=== PATIENT | male | born 1945 | race Caucasian/White ===

== ENCOUNTER 2018-05-09 08:38 | Day surgery (SDC) | payer MEDICARE ==
[2018-05-07 10:35] LABS: BASOPHILS # (AUTO) 0.1 X10'3 (0-0.2); BASOPHILS % (AUTO) 1.2 % (0-1); EOSINOPHILS # (AUTO) 0.2 X10'3 (0-0.9); EOSINOPHILS % (AUTO) 3.7 % (0-6); HEMATOCRIT 40.5 % (42.0-52.0); HEMOGLOBIN 13.8 g/dl (14.0-17.9); LYMPHOCYTES # (AUTO) 1.8 X10'3 (1.1-4.8); LYMPHOCYTES % (AUTO) 31.1 % (21-51); MEAN CORPUSCULAR HEMOGLOBIN 31.1 PG (27.0-31.0); MEAN CORPUSCULAR HGB CONC 34.1 g/dL (33.0-36.5); MEAN CORPUSCULAR VOLUME 91.3 FL (78-98); MEAN PLATELET VOLUME 8.6 FL (7.4-10.4); MONOCYTES # (AUTO) 0.6 X10'3 (0-0.9); MONOCYTES % (AUTO) 10.4 % (2-12); NEUTROPHILS # (AUTO) 3.1 X10'3 (1.8-7.7); NEUTROPHILS % (AUTO) 53.6 % (42-75); PLATELET COUNT 216 X10'3 (140-440); RED BLOOD COUNT 4.44 X10'6 (4.70-6.10); RED CELL DISTRIBUTION WIDTH 13.7 % (11.5-14.5); WHITE BLOOD COUNT 5.9 X10'3 (4.5-11.0)
[2018-05-07 10:43] LABS: PARTIAL THROMBOPLASTIN TIME 25 SECONDS (22-32)
[2018-05-07 10:46] LABS: ALANINE AMINOTRANSFERASE 37 U/L (12-78); ALBUMIN/GLOBULIN RATIO 1.3 (1.1-1.5); ALKALINE PHOSPHATASE 83 IU/L (46-116); ANION GAP 12 (8-16); ASPARTATE AMINO TRANSFERASE 18 U/L (10-37); BILIRUBIN,TOTAL 0.7 MG/DL (0.1-1.0); BLOOD UREA NITROGEN 20 MG/DL (7-18); BUN/CREATININE RATIO 16.9 (5.4-32.0); CALCIUM 9.7 MG/DL (8.5-10.1); CHLORIDE 106 MMOL/L (99-107); CREATININE 1.18 MG/DL (0.60-1.10); GLUCOSE 156 MG/DL (70-104); POTASSIUM 4.3 MMOL/L (3.5-5.1); SODIUM 140 MMOL/L (135-145); TOTAL CARBON DIOXIDE 22.4 MMOL/L (24-32); TOTAL PROTEIN 7.1 G/DL (6.4-8.2); eGFR 61 ML/MIN
[2018-05-09] VITALS (13 sets, daily range): BP systolic 111–179; BP diastolic 54–82
[~2018-05-09] VITALS: Ht 175.3 cm; Wt 109.6 kg
[~2018-05-09 08:38] MED LIST: ASPI-1009 PO; FLO0.4C PO; GLIM1TAB46 PO; METF500T PO; METO100T7 PO; MULT-1074 PO; SIMV20TA5 PO; TAMSULOSIN
[2018-05-09] MEDS ORDERED: glucagon, human recombinant 1mg kit SUBCUT PRN (09:05)
[2018-05-09] MEDS ORDERED: insulin Lispro (HumaLOG) vial - multi-dose SQ SCH (09:05)
[2018-05-09] MEDS ORDERED: dextrose ORAL solution 15 GM/59 ML bottle PO PRN ×2 (09:05)
[2018-05-09] MEDS ORDERED: MESSAGE TO PHARMACY PO ONE (09:05)
[2018-05-09] MEDS ORDERED: dextrose 50%-water 50ml dispensing syringe IV PRN ×2 (09:05)
[2018-05-09] MEDS ORDERED: LORazepam 0.5 MG tablet PO PRN (09:10)
[2018-05-09] MEDS ORDERED: normal saline 1000ml 1,000 ML IV SCH (09:10)
[2018-05-09] MEDS ORDERED: diphenhydrAMINE 25mg capsule PO PRN (09:10)
[2018-05-09] MEDS ORDERED: nitroGLYCERIN 0.4mg SUBLingual tab SL PRN ×2 (09:10→12:05)
[2018-05-09] MEDS ORDERED: AMLO5TAB PO (09:20)
[2018-05-09] MEDS ORDERED: FISH1200 PO (09:20)
[2018-05-09] MEDS ORDERED: LOSA25TA96 PO (09:20)
[2018-05-09] MEDS ORDERED: METO100T14 PO (09:20)
[2018-05-09] MEDS ORDERED: NITR0.4T48 SL (09:20)
[2018-05-09] MEDS ORDERED: LIDOcaine 1% (10mg/ml)w/preservative injection 20ml MDV ONE (10:23)
[2018-05-09] MEDS ORDERED: iohexol 350 MG/ML 50ML vial IV ONE (10:23)
[2018-05-09] MEDS ORDERED: iohexol 350MG/ML 100ml bottle IV ONE (10:23)
[2018-05-09] MEDS ORDERED: midazolam 2 mg/2 ml injection ONE ×2 (10:39→10:57)
[2018-05-09] MEDS ORDERED: fentaNYL/PF 50MCG/1 ML 2ML syringe ONE (10:39)
[2018-05-09] MEDS ORDERED: ondansetron/PF 4mg/2ml inj IV PRN (12:05)
[2018-05-09] MEDS ORDERED: normal saline 1000ml 1,000 ML IV ONE (12:05)
[2018-05-09] MEDS ORDERED: HYDROcodone/acetaminophen 5mg/325mg tablet PO PRN (12:05)
[2018-05-09] MEDS ORDERED: HYDROcodone/acetaminophen 10/325mg tab PO PRN (12:05)
[2018-05-09] MEDS ORDERED: OXAZEpam 15mg capsule PO PRN (12:05)
[2018-05-09] MEDS ORDERED: proCHLORperazine 10 MG/2 ml inj IV PRN (12:05)
[2018-05-09] MEDS ORDERED: clopidogrel 300mg tablet ONE (13:51)
[2018-05-09] MEDS ORDERED: heparin 25,000 UNIT/250ml bag 250 ML IV ONE (13:51)
[2018-05-09] MEDS ORDERED: insulin glargine (Lantus) pen - multi-dose SQ SCH (21:00)
== END 2018-05-09 18:55 | disposition home or self-care (01) ==
LOC: SSTAY O 08:38
PROVIDERS: ATTEND Internal Medicine Cardiovascular Disease
DX: I25.10 Atherosclerotic heart disease of native coronary artery without angina pectoris (principal); I10 Essential (primary) hypertension; E11.9 Type 2 diabetes mellitus without complications; Z79.84 Long term (current) use of oral hypoglycemic drugs; Z86.73 Personal history of transient ischemic attack (TIA), and cerebral infarction without residual deficits; Z79.01 Long term (current) use of anticoagulants; Z79.899 Other long term (current) drug therapy; Z88.5 Allergy status to narcotic agent; Z98.890 Other specified postprocedural states
CPT/HCPCS: 36415; 71046; 80053; 82948; 85025; 85610; 85730; 93005; 93458; 99152; 99153; A6257; J1644; J2001; J2250; J3010; J7030; Q0163; Q9967; A4620; C1769

== ENCOUNTER 2022-09-16 10:10 | Emergency (ER) | payer MEDICARE ==
[~2022-09-16] VITALS: Ht 172.7 cm; Wt 109.0 kg
[~2022-09-16 10:10] MED LIST changes: +AMA1T PO; +AMLO5TAB PO; +FISH1200 PO; -GLIM1TAB46 PO; +LOSA25TA96 PO; +METO100T14 PO; -METO100T7 PO; +NITR0.4T48 SL; +SIMV-42 PO; -SIMV20TA5 PO; -TAMSULOSIN
[2022-09-16 10:57] VITALS: BP 137/65
[2022-09-16] MEDS ORDERED: mupirocin 2% ointment 22GM TP STA (11:45)
[2022-09-16] MEDS ORDERED: TETanus/Pertussis (Acell)/Diphther VAC/PF (Tdap-Adult) 0.5ml syringe IMVAC ONE (12:50)
[2022-09-16] MEDS ORDERED: TRAM50TA2 PO (12:52)
== END 2022-09-16 13:11 | disposition home or self-care (01) ==
LOC: ER 10:10
DX: S00.01XA Abrasion of scalp, initial encounter (principal); S09.90XA Unspecified injury of head, initial encounter; S80.12XA Contusion of left lower leg, initial encounter; R07.89 Other chest pain; Z23 Encounter for immunization; V19.88XA Pedal cyclist (driver) (passenger) injured in other specified transport accidents, initial encounter; Y93.89 Activity, other specified; Y92.89 Other specified places as the place of occurrence of the external cause; Y99.8 Other external cause status
CPT/HCPCS: 70450; 71045; 73564; 90471; 90715; 99285; A6258; A6449